=== PATIENT | male | born 1950 | race Caucasian/White ===

== ENCOUNTER 2018-10-01 09:20 | Day surgery (SDC) | payer OTHER, BC ==
[2018-09-19 10:47] VITALS: BMI 30.7
--- NOTE | 2018-09-25 09:53 | HP ---
DATE OF DICTATION: 09/16/2018 DATE OF SURGERY: 10/01/18 REASON FOR ADMISSION: Right inguinal hernia. BRIEF HISTORY: This is a 68-year-old gentleman with a long-standing history of having a right inguinal hernia. He was fine up until several weeks ago, when he was at work leaning against a table and subsequently lifting some heavy iron work and bumped into the table and developed sharp pain in the right groin region. He also there is a lump in that area at that time as well. He has had no nausea, no vomiting, and no change in bowel habits. PAST MEDICAL HISTORY: Significant for reflux disease, hypertension, and arthritic changes. Denies coronary disease and diabetes. PAST SURGICAL HISTORY: None. ALLERGIES: None. MEDICATIONS: Atorvastatin, metoprolol, felodipine, doxazosin, allopurinol, vitamins. SOCIAL HISTORY: He does not smoke, does not drink. PHYSICAL EXAMINATION: The patient is obese. Abdomen is soft, nontender, nondistended. There is a large amount of fat in both groins. He has an obvious large right inguinal hernia, partially reducible in the supine position. The right scrotum and testicle is within normal limits. There is a large amount of laxity noted in the left groin, no obvious hernia but the exam is limited due to the large amount of fat. Left scrotum and testicle is within normal limits. A small left inguinal hernia cannot be entirely ruled out based on physical examination. IMPRESSION/PLAN: Right groin pain, right inguinal hernia: This is a 68-year- old gentleman, symptomatic from a large right inguinal hernia. At this point, I would recommend surgery and the patient will be scheduled for a laparoscopic right inguinal hernia repair. At the time of laparoscopy, I will examine the left side to rule out for an occult hernia missed on examination. If a hernia is noted, it will be repaired. If no hernia is seen, a piece of mesh will be left in the inguinal space for reinforcement of the floor. Due to the generosity of the hernia on the right, he is more likely to develop a postoperative seroma which may or may not resolve. The indications, alternatives, and complications of the procedure were discussed, questions answered. Will plan to obtain written consent the day of surgery. EVITA DOW M.D. [id number] cc: Supriya Tran MD MTDD
[2018-10-01] MEDS ORDERED: TAMSULOSIN HCL 0.4 MG CAP ONE (10:10)
[2018-10-01] MEDS ORDERED: MIDAZOLAM HCL 2 MG/2 ML SINGLE DOSE VIAL ONE ×2 (10:43→11:20)
[2018-10-01] MEDS ORDERED: ROPIVACAINE HCL 0.5% 30ML VIAL ONE (10:44)
[2018-10-01] MEDS ORDERED: fentaNYL CITRATE 250 MCG/5 ML VIAL ONE (11:19)
[2018-10-01] MEDS ORDERED: PROPOFOL 20 ML ONE ×3 (11:20→15:24)
[2018-10-01] MEDS ORDERED: ROCURONIUM BROMIDE 50 MG/5 ML VIAL ONE (11:20)
[2018-10-01] MEDS ORDERED: DEXAMETHASONE SOD PHOSPHATE 4 MG/1 ML VIAL ONE (11:35)
[2018-10-01] MEDS ORDERED: ONDANSETRON 4 MG/2 ML VIAL ONE (11:35)
[2018-10-01] MEDS ORDERED: ONDANSETRON 4 MG/2 ML VIAL IVPUSH PRN (11:50)
[2018-10-01] MEDS ORDERED: oxyCODONE HCL 5 MG TABLET PO PRN ×2 (11:50)
[2018-10-01] MEDS ORDERED: LACTATED RINGERS SOLUTION 1,000 ML IV SCH (12:00)
[2018-10-01] MEDS ORDERED: NEOSTIGMINE METHYLSULFATE 0.5 MG/ML - 10 ML MDV ONE (12:12)
[2018-10-01 14:30] VITALS: BP 135/79; PULSE 55; TEMP 97.9
--- NOTE | 2018-10-01 14:37 | OP ---
DATE OF OPERATION: 10/01/2018 PREOPERATIVE DIAGNOSIS: Right inguinal hernia. POSTOPERATIVE DIAGNOSIS: Right indirect inguinal hernia, left indirect inguinal hernia. PROCEDURE PERFORMED: Bilateral laparoscopic inguinal herniorrhaphy with mesh. SURGEON: Hay Hooper M.D. STUDENT SUPPORT SERVICES DIRECTOR: Kwame Ahmadi M.D. ANESTHESIA: General. ANESTHESIOLOGIST: Johnathan Osborne M.D. ESTIMATED BLOOD LOSS: Minimal. SPECIMEN: None. INDICATIONS FOR PROCEDURE: This is a 68-year-old gentleman symptomatic from a right inguinal hernia. The patient is now here for operative repair. DESCRIPTION OF PROCEDURE: The patient was identified and appropriately positioned on the operating room table. After the placement of general anesthesia, the abdomen was prepped and draped in the usual sterile fashion with ChloraPrep. An infraumbilical incision was made and deepened through the subcutaneous tissue. The fascia of the rectus muscle on the right was identified. The muscle was split. Under direct vision, a dissector balloon followed by a structural balloon were placed. Also under direct vision, a suprapubic 11-mm port was placed. The following structures on the right side were identified: The pubic tubercle, Chung ligament, inferior epigastric vessels, spermatic cord and lateral abdominal wall. During this dissection, the patient was noted to have no direct component. The direct inguinal space was not attenuated. He had a moderate to large indirect inguinal hernia sac reduced back into the preperitoneal space with blunt dissection. A 4.5 by 6 piece of Versatex mesh was keyholed and placed through the superior port site. The mesh was wrapped around the structures laterally to reconstruct the internal ring. Laterally, the mesh was anchored to the anterior abdominal wall and to the lateral abdominal wall. Medially, the mesh was anchored to the anterior abdominal wall, pubic tubercle and Chung ligament. Upon completion of the right side, similar structures on the left side identified. On the left side, he had a small indirect inguinal hernia sac, which was reduced back into the preperitoneal space with blunt dissection. Again, no direct inguinal floor findings. Another 4.5 x 6 piece of Versatex mesh was keyholed and placed through the superior port site. The mesh was wrapped around the cord structures laterally to reconstruct the internal ring. Laterally, the mesh was anchored to the anterior abdominal wall and lateral abdominal wall. Medially, the mesh was anchored to the anterior abdominal wall, pubic tubercle and Chung ligament. There was good overlap of the mesh in the midline. The mesh used was Versatex 15 x 15. The anchoring system was AbsorbaTack. All anterior abdominal wall and lateral abdominal wall anchors were placed under direct counter palpation. The preperitoneal space was desufflated under direct vision. The operative field was noted to be hemostatic. The fascia at both port sites was reapproximated with interrupted 0 Vicryl suture. The skin was closed with 4-0 subcuticular Biosyn followed by Dermabond. At the conclusion of the case, sponge and instrument counts were correct. ATTESTATION: Brief operative note handwritten on the preprinted form. [facility] cleared prior to giving any narcotics. Lukasz GRIFFITH [id number] cc: Supriya Tran MD MTDD
== END 2018-10-01 14:30 | disposition home or self-care (01) ==
LOC: FASU 09:20
PROVIDERS: ATTEND Surgery
PROC: 0YUA4JZ Supplement Bilateral Inguinal Region with Synthetic Substitute, Percutaneous Endoscopic Approach (ICD-10-PCS; principal; 2018-10-01 11:00)
DX: K40.20 Bilateral inguinal hernia, without obstruction or gangrene, not specified as recurrent (principal); I10 Essential (primary) hypertension; K21.9 Gastro-esophageal reflux disease without esophagitis
CPT/HCPCS: 94760